=== PATIENT | male | born 1945 | race Caucasian/White ===

== ENCOUNTER 2016-12-27 10:58 | Emergency (ER) | payer MEDICARE, OTHER | END 2016-12-27 14:24 | disposition home or self-care (01) | LOC: ER 10:58 | DX: S09.90XA Unspecified injury of head, initial encounter (principal); M25.552 Pain in left hip; M54.5 Low back pain; W17.89XA Other fall from one level to another, initial encounter; Y92.009 Unspecified place in unspecified non-institutional (private) residence as the place of occurrence of the external cause; I10 Essential (primary) hypertension | CPT/HCPCS: 72192; 73502; 99283-25; 99284 ==